=== PATIENT | male | born 1955 | race Two or more races ===

== ENCOUNTER 2018-10-06 13:05 | Outpatient (CLI) | payer OTHER ==
[2018-10-06 14:39] LABS: BASOPHILS # (AUTO) 0.1 X10'3 (0-0.2); BASOPHILS % (AUTO) 0.5 % (0-1); EOSINOPHILS # (AUTO) 0.4 X10'3 (0-0.9); EOSINOPHILS % (AUTO) 4.1 % (0-6); LYMPHOCYTES # (AUTO) 1.1 X10'3 (1.1-4.8); MEAN CORPUSCULAR HEMOGLOBIN 32.9 PG (27.0-31.0); MEAN CORPUSCULAR HGB CONC 34.7 g/dL (33.0-36.5); MEAN CORPUSCULAR VOLUME 94.8 FL (78-98); MEAN PLATELET VOLUME 8.6 FL (7.4-10.4); MONOCYTES # (AUTO) 0.9 X10'3 (0-0.9); MONOCYTES % (AUTO) 8.3 % (2-12); NEUTROPHILS # (AUTO) 8.4 X10'3 (1.8-7.7); NEUTROPHILS % (AUTO) 77.1 % (42-75); PRE OP HEMATOCRIT 47.1 % (42.0-52.0); PRE OP HEMOGLOBIN 16.3 g/dL (14.0-17.9); PRE OP PLATELET COUNT 239 X10'3 (140-440); RED BLOOD COUNT 4.97 X10'6 (4.70-6.10); RED CELL DISTRIBUTION WIDTH 12.7 % (11.5-14.5)
[2018-10-06 14:46] LABS: ALBUMIN 4.1 G/DL (3.4-5.0); ALBUMIN/GLOBULIN RATIO 1.2 (1.1-1.5); ALKALINE PHOSPHATASE 171 IU/L (46-116); BLOOD UREA NITROGEN 20 MG/DL (7-18); BUN/CREATININE RATIO 13.2 (5.4-32.0); CALCIUM 8.7 MG/DL (8.5-10.1); CHLORIDE 96 MMOL/L (99-107); CREATININE 1.51 MG/DL (0.60-1.10); PRE OP ANION GAP 12 (8-16); PRE OP PROTIME 33.7 SECONDS (9.0-12.0); PRE OP SODIUM 133 MMOL/L (135-145); TOTAL CARBON DIOXIDE 25.1 MMOL/L (24-32); TOTAL PROTEIN 7.6 G/DL (6.4-8.2); eGFR 47 ML/MIN
[2018-10-06 14:48] LABS: PRE OP POTASSIUM 4.5 MMOL/L (3.4-5.1)
[2018-10-06 14:49] LABS: PRE OP ALT 102 U/L (30-65); PRE OP GLUCOSE 519 MG/DL (70-104); PRE OP INR 3.6 INR
[2018-10-06 14:56] LABS: HEMOGLOBIN A1C 9.8 % (4.5-6.2)
[2018-10-06 14:58] LABS: PRE OP AST 74 U/L (10-37)
[2018-10-06] MEDS ORDERED: LOSA1TAB41 PO (17:13)
[2018-10-06] MEDS ORDERED: SITA1TBM7 PO (17:13)
[2018-10-06] MEDS ORDERED: METO-384 PO (17:13)
[2018-10-06] MEDS ORDERED: ESCI10TA54 PO (17:13)
[2018-10-06] MEDS ORDERED: CELE-85 PO (17:13)
== END 2018-10-06 23:59 | disposition home or self-care (01) ==
LOC: PRE-OP 13:05 → EDSTATUS 10-12 11:00
PROVIDERS: ATTEND Orthopaedic Surgery
DX: Z01.818 Encounter for other preprocedural examination (principal); Z79.899 Other long term (current) drug therapy
CPT/HCPCS: 36415; 80053; 83036; 85025; 85610; 85730; 87070

== ENCOUNTER 2022-09-21 06:48 | Day surgery (SDC) | payer MEDICARE ==
[2022-09-21] VITALS (9 sets, daily range): BP systolic 115–145; BP diastolic 72–87
[~2022-09-21] VITALS: Ht 172.7 cm; Wt 81.6 kg
[~2022-09-21 06:48] MED LIST: CELE-85 PO; ESCI-8 PO; GLIP10TA11 PO; LOSA1TAB41 PO; METO-384 PO; SITA1TBM7 PO
[2022-09-21] MEDS ORDERED: diphenhydrAMINE 25mg capsule PO PRN (07:15)
[2022-09-21] MEDS ORDERED: normal saline 1,000 ML IV SCH (07:15)
[2022-09-21] MEDS ORDERED: ATOR10TA70 PO (07:27)
[2022-09-21] MEDS ORDERED: OLME-39 PO (07:27)
[2022-09-21] MEDS ORDERED: [UNRECOGNIZED DRUG - CODE] PO (07:27)
[2022-09-21] MEDS ORDERED: WARF2.5T82 PO (07:27)
[2022-09-21] MEDS ORDERED: EMPA25TA PO (07:27)
[2022-09-21 07:38] LABS: BASOPHILS # (AUTO) 0.1 X10'3 (0-0.2); EOSINOPHILS # (AUTO) 0.2 X10'3 (0-0.9); LYMPHOCYTES # (AUTO) 0.7 X10'3 (1.1-4.8)
[2022-09-21 07:40] LABS: BASOPHILS % (AUTO) 1.1 % (0-1); EOSINOPHILS % (AUTO) 2.5 % (0-6); HEMOGLOBIN 12.6 g/dl (14.0-17.9); LYMPHOCYTES % (AUTO) 7.9 % (21-51); MEAN CORPUSCULAR HEMOGLOBIN 24.6 PG (27.0-31.0); MEAN CORPUSCULAR HGB CONC 31.6 g/dL (33.0-36.5); MEAN CORPUSCULAR VOLUME 77.9 FL (78-98); MEAN PLATELET VOLUME 7.3 FL (7.4-10.4); MONOCYTES # (AUTO) 0.6 X10'3 (0-0.9); MONOCYTES % (AUTO) 6.7 % (2-12); NEUTROPHILS # (AUTO) 7.6 X10'3 (1.8-7.7); NEUTROPHILS % (AUTO) 81.8 % (42-75); PLATELET COUNT 331 X10'3 (140-440); RED BLOOD COUNT 5.13 X10'6 (4.70-6.10); RED CELL DISTRIBUTION WIDTH 20.5 % (11.5-14.5); WHITE BLOOD COUNT 9.3 X10'3 (4.5-11.0)
[2022-09-21 07:46] LABS: ALBUMIN 3.9 G/DL (3.4-5.0); ANION GAP 10 (8-16); BLOOD UREA NITROGEN 23 MG/DL (7-18); BUN/CREATININE RATIO 21.9 (5.4-32.0); CHLORIDE 104 MMOL/L (99-107); CREATININE 1.05 MG/DL (0.60-1.10); GLUCOSE 175 MG/DL (70-104); SODIUM 137 MMOL/L (135-145); TOTAL CARBON DIOXIDE 23.4 MMOL/L (24-32); eGFR 70 ML/MIN
[2022-09-21 07:52] LABS: POTASSIUM 4.3 MMOL/L (3.5-5.1)
[2022-09-21 08:28] LABS: ANISOCYTOSIS 3+; ELLIPTOCYTES FEW; MICROCYTOSIS 1+; PLATELET ESTIMATE NORMAL
[2022-09-21 08:31] LABS: TEAR DROP CELLS FEW
[2022-09-21] MEDS ORDERED: verapamil 2.5 mg/ml inj IV ONE (08:45)
[2022-09-21] MEDS ORDERED: nitroGLYCERIN-Tridil 50MG/D5W 250 ML IV ONE (08:45)
[2022-09-21] MEDS ORDERED: midazolam 1 mg/ML 2ml injection ONE ×2 (08:46→09:33)
[2022-09-21] MEDS ORDERED: iohexol 350MG/ML 100ml bottle IV ONE (08:46)
[2022-09-21] MEDS ORDERED: heparin 1,000unit/ml 10ml vial 10 ML ONE (08:46)
[2022-09-21] MEDS ORDERED: fentaNYL/PF 50MCG/1 ML 2ML syringe ONE (08:46)
[2022-09-21] MEDS ORDERED: LIDOcaine 1% 30ml preserv. free vial ONE (08:46)
[2022-09-21] MEDS ORDERED: iohexol 350 MG/ML 50ML vial IV ONE ×2 (08:46→10:03)
[2022-09-21] MEDS ORDERED: ondansetron/PF 4mg/2ml inj IV PRN (10:40)
[2022-09-21] MEDS ORDERED: HYDROcodone/acetaminophen 10/325mg tab PO PRN (10:40)
[2022-09-21] MEDS ORDERED: proCHLORperazine 10 MG/2 ml inj IV PRN (10:40)
[2022-09-21] MEDS ORDERED: HYDROcodone/acetaminophen 5mg/325mg tablet PO PRN (10:40)
== END 2022-09-21 14:05 | disposition home or self-care (01) ==
LOC: SSTAY O 06:48
PROVIDERS: ATTEND Internal Medicine Cardiovascular Disease
DX: R94.31 Abnormal electrocardiogram [ECG] [EKG] (principal); I25.10 Atherosclerotic heart disease of native coronary artery without angina pectoris; I71.9 Aortic aneurysm of unspecified site, without rupture; Q23.1 Congenital insufficiency of aortic valve; I10 Essential (primary) hypertension; I47.20 Ventricular tachycardia, unspecified; E11.9 Type 2 diabetes mellitus without complications; E78.5 Hyperlipidemia, unspecified; F34.1 Dysthymic disorder; M10.9 Gout, unspecified; Z79.01 Long term (current) use of anticoagulants; Z79.84 Long term (current) use of oral hypoglycemic drugs; Z79.899 Other long term (current) drug therapy
CPT/HCPCS: 36415; 80048; 82948; 83735; 85025; 85610; 93005; 93455; 99152; 99153; A6258; C1760; C1769; C1894; J1644; J2250; J3010; J3490; J7030; Q0163; Q9967; 85008; 93454; A6402

== ENCOUNTER 2022-11-06 08:09 | Day surgery (SDC) | payer MEDICARE ==
[2022-11-06] VITALS (10 sets, daily range): BP systolic 102–131; BP diastolic 63–78
[~2022-11-06] VITALS: Ht 172.7 cm; Wt 82.5 kg
[~2022-11-06 08:09] MED LIST changes: +ATOR10TA70 PO; -CELE-85 PO; +EMPA25TA PO; -LOSA1TAB41 PO; +OLME-39 PO; -SITA1TBM7 PO; +WARF2.5T82 PO; +[UNRECOGNIZED DRUG - CODE] PO
[2022-11-06] MEDS ORDERED: SODIUM BICARB 150mEq/D5W 1L 1,000 ML IV ONE (08:35)
[2022-11-06] MEDS ORDERED: normal saline 1,000 ML IV SCH (08:35)
[2022-11-06] MEDS ORDERED: diphenhydrAMINE 25mg capsule PO PRN (08:35)
[2022-11-06] MEDS ORDERED: EMPA10TA PO (08:44)
[2022-11-06] MEDS ORDERED: COLC0.6T72 PO (08:44)
[2022-11-06] MEDS ORDERED: lovenox SQ (08:44)
[2022-11-06] MEDS ORDERED: PANT40TA54 PO (08:44)
[2022-11-06] MEDS ORDERED: LIDOcaine 1% 30ml preserv. free vial ONE (08:50)
[2022-11-06] MEDS ORDERED: heparin 1,000unit/ml 10ml vial 10 ML ONE ×2 (08:50→10:32)
[2022-11-06] MEDS ORDERED: iohexol 350MG/ML 100ml bottle IV ONE ×2 (08:50→10:47)
[2022-11-06] MEDS ORDERED: fentaNYL/PF 50MCG/1 ML 2ML syringe ONE (08:50)
[2022-11-06] MEDS ORDERED: midazolam 1 mg/ML 2ml injection ONE ×2 (08:50→09:26)
[2022-11-06 08:59] LABS: BASOPHILS # (AUTO) 0.1 X10'3 (0-0.2); BASOPHILS % (AUTO) 1.2 % (0-1); EOSINOPHILS # (AUTO) 0.2 X10'3 (0-0.9); HEMATOCRIT 43.4 % (42.0-52.0); HEMOGLOBIN 13.7 g/dl (14.0-17.9); LYMPHOCYTES # (AUTO) 0.7 X10'3 (1.1-4.8); MEAN CORPUSCULAR HEMOGLOBIN 24.9 PG (27.0-31.0); MEAN CORPUSCULAR HGB CONC 31.5 g/dL (33.0-36.5); MEAN CORPUSCULAR VOLUME 79.2 FL (78-98); MEAN PLATELET VOLUME 7.1 FL (7.4-10.4); MONOCYTES # (AUTO) 0.5 X10'3 (0-0.9); NEUTROPHILS # (AUTO) 5.8 X10'3 (1.8-7.7); NEUTROPHILS % (AUTO) 78.8 % (42-75); PLATELET COUNT 265 X10'3 (140-440); RED BLOOD COUNT 5.48 X10'6 (4.70-6.10); RED CELL DISTRIBUTION WIDTH 19.8 % (11.5-14.5); WHITE BLOOD COUNT 7.4 X10'3 (4.5-11.0)
[2022-11-06 09:30] LABS: ALBUMIN 4.2 G/DL (3.4-5.0); ANION GAP 9 (8-16); BLOOD UREA NITROGEN 14 MG/DL (7-18); BUN/CREATININE RATIO 13.3 (5.4-32.0); CALCIUM 9.7 MG/DL (8.5-10.1); CHLORIDE 104 MMOL/L (99-107); CREATININE 1.05 MG/DL (0.60-1.10); GLUCOSE 134 MG/DL (70-104); MAGNESIUM 1.8 MG/DL (1.5-2.4); POTASSIUM 3.9 MMOL/L (3.5-5.1); SODIUM 138 MMOL/L (135-145); TOTAL CARBON DIOXIDE 25.5 MMOL/L (24-32); eGFR 70 ML/MIN
[2022-11-06 10:43] LABS: PLATELET ESTIMATE NORMAL
[2022-11-06 10:44] LABS: ANISOCYTOSIS 2+; ELLIPTOCYTES 1+; MICROCYTOSIS 1+
[2022-11-06] MEDS ORDERED: clopidogrel 300mg tablet ONE (11:15)
[2022-11-06] MEDS ORDERED: normal saline 1000ml 1,000 ML IV SCH (12:05)
[2022-11-06] MEDS ORDERED: ondansetron/PF 4mg/2ml inj IV PRN (12:05)
[2022-11-06] MEDS ORDERED: HYDROcodone/acetaminophen 10/325mg tab PO PRN (12:05)
[2022-11-06] MEDS ORDERED: acetaminophen 325mg tablet PO PRN (12:05)
[2022-11-06] MEDS ORDERED: proCHLORperazine 10 MG/2 ml inj IV PRN (12:05)
[2022-11-06] MEDS ORDERED: HYDROcodone/acetaminophen 5mg/325mg tablet PO PRN (12:05)
== END 2022-11-06 15:20 | disposition home or self-care (01) ==
LOC: SSTAY O 08:09
PROVIDERS: ATTEND Internal Medicine Cardiovascular Disease
DX: I71.9 Aortic aneurysm of unspecified site, without rupture (principal); I25.10 Atherosclerotic heart disease of native coronary artery without angina pectoris; Q23.1 Congenital insufficiency of aortic valve; Z95.2 Presence of prosthetic heart valve; I10 Essential (primary) hypertension; I47.20 Ventricular tachycardia, unspecified; F34.1 Dysthymic disorder; E11.9 Type 2 diabetes mellitus without complications; M10.9 Gout, unspecified; M19.90 Unspecified osteoarthritis, unspecified site; G89.29 Other chronic pain; E78.5 Hyperlipidemia, unspecified; Z79.01 Long term (current) use of anticoagulants; Z79.82 Long term (current) use of aspirin; Z79.84 Long term (current) use of oral hypoglycemic drugs; Z79.899 Other long term (current) drug therapy; Z98.890 Other specified postprocedural states; Z90.49 Acquired absence of other specified parts of digestive tract; Z96.652 Presence of left artificial knee joint; Z82.49 Family history of ischemic heart disease and other diseases of the circulatory system
CPT/HCPCS: 36415; 80048; 82948; 83735; 85025; 85610; 92920; 92978; 93005; 99152; 99153; C1725; C1751; C1753; C1760; C1769; C1874; C1892; C1894; C9600; J1644; J2250; J3010; J3490; J7030; Q9967; 85008; A6258; C1761; C9601